=== PATIENT | female | born 1970 | race Caucasian/White ===

== ENCOUNTER 2018-06-19 03:00 | Emergency (ER) | payer OTHER ==
[2018-06-19] MEDS ORDERED: KETOROLAC 30 MG/ML INJ ONE (03:34)
[2018-06-19] MEDS ORDERED: ONDANSETRON 4 MG/2 ML VIAL ONE (03:34)
[2018-06-19] MEDS ORDERED: NA CHLORIDE 0.9% 1,000 ML ONE (03:35)
[2018-06-19] MEDS ORDERED: ACETAMINOPHEN 500 MG TAB ONE (04:59)
--- NOTE | 2018-06-19 05:03 | ER ---
Nurse's Notes [facility] Name: Karolyn Macias Age: 48 yrs Sex: Female : 1970 Arrival Date: 06/19/2018 Time: 03:06 Bed 8 Private MD: Ramón Wade Diagnosis: Migraine with aura, not intractable Presentation: 06/19 03:14 Presenting complaint: Patient states: I have a headache that started on Saturday and has jb4 just gotten worse. It feels like a migraine headache. Transition of care: patient was not received from another setting of care. Onset of symptoms was June 17, 2018. Risk Assessment: Do you want to hurt yourself or someone else? Patient reports no desire to harm self or others. Initial Sepsis Screen: Does the patient meet any 2 criteria? HR > 90 bpm. Yes Does the patient have a suspected source of infection? No. Patient's initial sepsis screen is negative. Care prior to arrival: None. 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 - Social history:: Smoking status: Patient/guardian denies using tobacco, Patient uses alcohol. - Ebola Screening: : No symptoms or risks identified at this time. Screenin:20 Abuse screen: Denies threats or abuse. Nutritional screening: No deficits noted. ea Tuberculosis screening: No symptoms or risk factors identified. Fall Risk None identified. Assessment: 03:18 General: Appears uncomfortable, Behavior is calm, appropriate for age. Pain: Complains ea of pain in forehead, right samaritan and left samaritan. Neuro: Level of Consciousness is awake, alert, obeys commands, Oriented to person, place, time. Cardiovascular: Patient's skin is warm and dry. Respiratory: Airway is patent Respiratory effort is even, unlabored, Respiratory pattern is regular, symmetrical. Derm: Skin is pink, warm \T\ dry. Musculoskeletal: Circulation, motion, and sensation intact. 04:22 Reassessment: Patient and/or family updated on plan of care and expected duration. Pain ea level reassessed. Patient is alert, oriented x 3, equal unlabored respirations, skin warm/dry/pink. Patient states symptoms have improved. 05:14 Reassessment: Patient and/or family updated on plan of care and expected duration. Pain ea level reassessed. Patient is alert, oriented x 3, equal unlabored respirations, skin warm/dry/pink. Discharge instructions given to patient, verbalized the understanding of instructions. Patient states feeling better. Patient states symptoms have improved. Vital Signs: 03:20 BP 157 / 89; Pulse 108; Resp 19; Temp 97.7; Pulse Ox 99% ; Weight 131.54 kg; Height 5 jb4 ft. 3 in. (160.02 cm); Pain 5/10; 04:26 BP 122 / 73; Pulse 72; Resp 18; Pulse Ox 99% ; Pain 3/10; ea 05:00 BP 101 / 61; Pulse 70; Resp 18; Pulse Ox 100% on R/A; ea 03:20 Body Mass Index 51.37 (131.54 kg, 160.02 cm) jb4 ED Course: 03:06 Patient arrived in ED. es 03:06 Ramón Wade MD is Private Physician. es 03:10 Vitor Ibrahim, RN is Primary Nurse. ao 03:15 Triage completed. jb4 03:15 Chip Antonio MD is Attending Physician. tw4 03:18 Patient has correct armband on for positive identification. Bed in low position. Call ea light in reach. Side rails up X2. 03:20 Arm band placed on right ankle. jb4 03:29 Inserted saline lock: 20 gauge in right forearm, using aseptic technique. rr5 05:02 Ramón Wade MD is Referral Physician. tw4 05:15 No provider procedures requiring assistance completed. IV discontinued, intact, ea bleeding controlled, No redness/swelling at site. Pressure dressing applied. Administered Medications: 03:31 Drug: TORadol 30 mg Route: IVP; Site: right antecubital; ea 04:00 Follow up: Response: No adverse reaction; Pain is decreased ea 03:31 Drug: Zofran 4 mg Route: IVP; Site: right antecubital; ea 04:00 Follow up: Response: No adverse reaction; Pain is decreased ea 03:31 Drug: NS 0.9% 1000 ml Route: IV; Rate: 1 bolus; Site: right antecubital; ea 04:25 Follow up: Response: No adverse reaction; IV Status: Completed infusion; IV Intake: ea 1000ml 04:54 Drug: Tylenol 1000 mg Route: PO; ea 05:10 Follow up: Response: Medication administered at discharge. ea Intake: 04:25 IV: 1000ml; Total: 1000ml. ea Outcome: 05:03 Discharge ordered by tw4 05:16 Discharged to home ambulatory. ea 05:16 Condition: improved 05:16 Discharge instructions given to patient, Instructed on discharge instructions, follow up and referral plans. medication usage, Demonstrated understanding of instructions, follow-up care, medications, Prescriptions given X 2. 05:17 Patient left the ED. ea Signatures: Trinity Penny Alex, RN RN Geronimo Ragland RN RN jb4 Eden Perez RN RN Chip Julien MD MD tw4 Byron Serrano RN RN rr5 Corrections: (The following items were deleted from the chart) 03:31 03:20 BP 178 / 9; Pulse 108bpm; Resp 19bpm; Pulse Ox 99%; Temp 97.7F; 131.54 kg; Height jb4 5 ft. 3 in.; BMI: 51.3; Pain 5/10; jb4
--- NOTE | 2018-06-19 05:03 | EDPHYS ---
Physician Documentation [facility] Name: Karolyn Macias Age: 48 yrs Sex: Female : 1970 Arrival Date: 06/19/2018 Time: 03:06 Bed 8 Private MD: Ramón Wade ED Physician PacoChip HPI: 06/19 04:29 This 48 yrs old Female presents to ER via Ambulatory with complaints of tw4 Headache. 04:29 The patient complains of pain to the left eye. The patient describes the headache as tw4 pounding, a pressure. Onset: The symptoms/episode began/occurred today. Associated signs and symptoms: The patient has no apparent associated signs or symptoms. Severity of symptoms: At its worst the pain was moderate, in the emergency department the pain is unchanged. Headache History: Denies prior headaches. The symptoms are alleviated by nothing. the symptoms are aggravated by nothing. 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 - Social history:: Smoking status: Patient/guardian denies using tobacco, Patient uses alcohol. - Ebola Screening: : No symptoms or risks identified at this time. ROS: 04:29 Constitutional: Negative for fever, chills, and weight loss, Eyes: Negative for injury, tw4 pain, redness, and discharge, Cardiovascular: Negative for chest pain, palpitations, and edema, Respiratory: Negative for shortness of breath, cough, wheezing, and pleuritic chest pain, Back: Negative for injury and pain, MS/Extremity: Negative for injury and deformity, Skin: Negative for injury, rash, and discoloration, Neuro: Negative for headache, weakness, numbness, tingling, and seizure. 04:29 Abdomen/GI: Positive for abdominal pain, Negative for nausea and vomiting, nausea, vomiting, and diarrhea, abdominal cramps, abdominal distension, anorexia, dysphagia, hematemesis, black/tarry stool, rectal pain. Exam: 04:29 Constitutional: This is a well developed, well nourished patient who is awake, alert, tw4 and in no acute distress. Head/Face: Normocephalic, atraumatic. Chest/axilla: Normal chest wall appearance and motion. Nontender with no deformity. No lesions are appreciated. Cardiovascular: Regular rate and rhythm with a normal S1 and S2. No gallops, murmurs, or rubs. Normal PMI, no JVD. No pulse deficits. Respiratory: Lungs have equal breath sounds bilaterally, clear to auscultation and percussion. No rales, rhonchi or wheezes noted. No increased work of breathing, no retractions or nasal flaring. Abdomen/GI: Soft, non-tender, with normal bowel sounds. No distension or tympany. No guarding or rebound. No evidence of tenderness throughout. Back: No spinal tenderness. No costovertebral tenderness. Full range of motion. MS/ Extremity: Pulses equal, no cyanosis. Neurovascular intact. Full, normal range of motion. Neuro: Awake and alert, GCS 15, oriented to person, place, time, and situation. Cranial nerves II-XII grossly intact. Motor strength 5/5 in all extremities. Sensory grossly intact. Cerebellar exam normal. Normal gait. Vital Signs: 03:20 BP 157 / 89; Pulse 108; Resp 19; Temp 97.7; Pulse Ox 99% ; Weight 131.54 kg; Height 5 jb4 ft. 3 in. (160.02 cm); Pain 5/10; 04:26 BP 122 / 73; Pulse 72; Resp 18; Pulse Ox 99% ; Pain 3/10; ea 05:00 BP 101 / 61; Pulse 70; Resp 18; Pulse Ox 100% on R/A; ea 03:20 Body Mass Index 51.37 (131.54 kg, 160.02 cm) jb4 MDM: 03:15 Patient medically screened. tw4 04:56 Data reviewed: vital signs, nurses notes. Counseling: I had a detailed discussion with 4 the patient and/or guardian regarding: the historical points, exam findings, and any diagnostic results supporting the discharge/admit diagnosis. Medication response: Toradol relieved patient's pain. The symptoms have resolved. Response to treatment: and as a result, I will discharge patient. Special discussion: Based on the patient's history, exam and DX evaluation, there is no indication for emergent intervention or inpatient TX. It is understood by the patient/guardian that if the SXs persist or worsen they need to return immediately for re-evaluation. Administered Medications: 03:31 Drug: TORadol 30 mg Route: IVP; Site: right antecubital; ea 04:00 Follow up: Response: No adverse reaction; Pain is decreased ea 03:31 Drug: Zofran 4 mg Route: IVP; Site: right antecubital; ea 04:00 Follow up: Response: No adverse reaction; Pain is decreased ea 03:31 Drug: NS 0.9% 1000 ml Route: IV; Rate: 1 bolus; Site: right antecubital; ea 04:25 Follow up: Response: No adverse reaction; IV Status: Completed infusion; IV Intake: ea 1000ml 04:54 Drug: Tylenol 1000 mg Route: PO; ea 05:10 Follow up: Response: Medication administered at discharge. ea Disposition: 06/19/18 05:03 Discharged to Home. Impression: Migraine with aura, not intractable. - Condition is Stable. - Discharge Instructions: Recurrent Migraine Headache, Migraine Headache, Theb-js-Gurr. - Prescriptions for Fiorinal 50- 325-40 mg Oral Capsule - take 1 capsule by ORAL route every 4 hours As needed - not to exceed 6 capsules per day; 20 capsule. Zofran 4 mg Oral Tablet - take 1 tablet by ORAL route every 12 hours As needed; 6 tablet. - Medication Reconciliation Form, Thank You Letter, Antibiotic Education, Prescription Opioid Use form. - Follow up: Ramón Wade MD; When: Upon discharge from the Emergency Department; Reason: Further diagnostic work-up, Recheck today's complaints, Continuance of care. - Problem is new. - Symptoms have improved. Signatures: Geronimo Grissom RN RN jb4 Eden Perez RN RN Chip Julien MD MD tw4 Corrections: (The following items were deleted from the chart) 05:17 05:03 06/19/2018 05:03 Discharged to Home. Impression: Migraine with aura, not ea intractable. Condition is Stable. Forms are Medication Reconciliation Form, Thank You Letter, Antibiotic Education, Prescription Opioid Use. Follow up: Ramón Wade; When: Upon discharge from the Emergency Department; Reason: Further diagnostic work-up, Recheck today's complaints, Continuance of care. Problem is new. Symptoms have improved. tw4
== END 2018-06-19 05:17 | disposition home or self-care (01) ==
LOC: ER 03:00
DX: G43.109 Migraine with aura, not intractable, without status migrainosus (principal); I10 Essential (primary) hypertension; E05.90 Thyrotoxicosis, unspecified without thyrotoxic crisis or storm
CPT/HCPCS: 96361; 96374; 96375; 99283; J2405; J7030

== ENCOUNTER 2021-12-04 01:32 | Emergency (ER) | payer OTHER ==
--- OUTSIDE RECORDS SUMMARY | 2021-12-04 01:35 | XMS REPORT | Continuity of Care Document ---
:1970 Author Organization Formerly [facility] t Address [address] [place] [address] Care Team Providers Name Role Phone Yehuda GARCIA Primary Care Physician Unavailable RADIOLOGY Attending Clinician Unavailable Radiology Attending Clinician Unavailable Doctor Unassigned, Name Attending Clinician Unavailable Yehuda GARCIA Admitting Clinician Unavailable WOODIN Admitting Clinician Unavailable Payers Payer Name Policy Type Policy Number Effective Date Expiration Date Derian [facility] [id number] 2018 00:00:00 2021 00:00 :00 Problems Condition Condition Condition Status Onset Resolution Last Treating Co mments Source Name Details Category Date Date Treatment Clinician Date Hypothyroi Hypothyroi Disease Active Overview : NPI:183 dism dism 01-25 ICD10 3428192 00:00: Diagnosis 00 Term [employer] Obesity Obesity Disease Active Overview: NPI: 183 01-25 ICD10 0587402 00:00: Diagnosis 00 Term [employer] Vitiligo Vitiligo Disease Active NPI:1 83 01-25 [id number] 00:00: 00 Impaired Impaired Disease Active NPI:1 83 glucose glucose 8-19 [id number] tolerance tolerance 00:00: test test 00 Allergies, Adverse Reactions, Alerts Allergy Allergy Status Severity Reaction(s) Onset Inactive Treating Comm ents Source Name Type Date Date Clinician NO KNOWN Drug Active NPI:183 ALLERGIE Class [id number] S Social History Social Habit Start Date Stop Date Quantity Comments Source Sex Assigned At NPI :[id number] Smoking Status Start Date Stop Date Source Unknown if ever smoked NPI:[id number] Medications Ordered Filled Start Stop Current Ordering Indication Dosage Frequency Signature Comments Components Source Medication Medication Date Date Medication? Clinician (SIG) Name Name propranolol 2020-0 Yes 120mg Take 120 N PI:183 (INNOPRAN 3-18 mg by [id number] XL) 120 mg 20:11: mouth at 24 hr 03 bedtime. capsule Drospirenon 2020-0 Yes 1{tbl} Take 1 Tab NPI:183 e-Ethinyl 3-18 by mouth [id number] 1 Estradiol 20:11: daily. (OCELLA) 03 3-0.03 mg tablet propranolol 2020-0 Yes 120mg Take 120 N PI:183 (INNOPRAN 3-18 mg by [id number] XL) 120 mg 20:11: mouth at 24 hr 03 bedtime. capsule Drospirenon 2020-0 Yes 1{tbl} Take 1 Tab NPI:183 e-Ethinyl 3-18 by mouth [id number] 1 Estradiol 20:11: daily. (OCELLA) 03 3-0.03 mg tablet codeine-gua Yes 10mL Take 10 mL NPI:183 ifenesin 5-27 by mouth [id number] (ROBITUSSIN 00:00: every 4 AC) 10-100 00 (four) mg/5 mL hours as solution needed for Cough. codeine-gua Yes 10mL Take 10 mL NPI:183 ifenesin 5-27 by mouth [id number] (ROBITUSSIN 00:00: every 4 AC) 10-100 00 (four) mg/5 mL hours as solution needed for Cough. Cholecalcif 2010-07 Yes 1{capsu Take 1 Cap NPI:183 silvino, 2-06 le} by mouth [id number] Vitamin D3, 00:00: weekly. 50,000 unit 00 Cap Cholecalcif 2010-07 Yes 1{capsu Take 1 Cap NPI:183 silvino, 2-06 le} by mouth [id number] Vitamin D3, 00:00: weekly. 50,000 unit 00 Cap Levothyroxi 2010-07 Yes .125mg Take 1 Cap NPI:183 ne 1-29 by mouth [id number] (TIROSINT) 00:00: daily. 125 mcg Cap 00 Levothyroxi 2010-07 Yes .125mg Take 1 Cap NPI:183 ne 1-29 by mouth [id number] (TIROSINT) 00:00: daily. 125 mcg Cap 00 Procedures Procedure Date / Time Performed Performing Clinician Sourc e XR CERVICAL SPINE 3 VW 2020-01-19 16:57:04 Kadeem Garcia NPI:1 [id number] ASSIGNMENT OF BENEFITS 2020-01-19 16:15:36 Doctor Unassigned, No Name XR WRIST 3+ VW BILATERAL 2019-09-30 17:28:20 Glenys Esqueda NPI :[id number] Encounters Start End Encounter Admission Attending Care Care Encounter Source Date/Time Date/Time Type Type Clinicians Facility Department ID 2020-01-19 2020-01-19 Outpatient R RADIOLOGY [facility] [id number] NPI:183 11:20:18 23:59:00 [id number] 2020-01-19 2020-01-19 [facility] Radiology [facility] [id number] NPI:183 11:15:00 23:59:00 [place]counter [place] [id number] [place] [id number] [place] [id number] 2020-01-19 2020-01-19 Outpatient R RADIOLOGY [facility] [id number] NPI:183 11:15:00 11:15:00 [id number] 2020-01-19 2020-01-19 Orders Doctor DAISY [id number] NPI:183 00:00:00 00:00:00 Only Unassigned, [place] [id number] [facility] [id number] 2019-09-30 2019-09-30 Outpatient R RADIOLOGY [facility] RAD [id number] NPI:183 10:59:24 23:59:00 [id number] 2019-09-30 2019-09-30 [facility] Radiology [facility] [id number] NPI:183 10:59:00 23:59:00 Encounter [place] [id number] [place] [id number] [place] [id number] Results Test Description Test Time Test Comments Results Result Sourc e Comments SCR MAMM 2020-12-29 BILATERAL BLADE 0 CAD DIGITAL 14:29:18 Name: Genesis : 1970 Sex: F - SCR MAMM BILATERAL BLADE CAD DIGITALBILATERAL DIGITAL SCREENING MAMMOGRAM 3D/2D WITH CAD: 01/17/2021LINICAL: Asymptomatic. Digital breast tomosynthesis was performed in addition to routine CC and MLO views. Current mammographic images were evaluated by [employer] Image[employer] CAD (computer-aided detection) software. Comparison is made to exams dated 01/07/2019 mammogram, 12/27/2017 mammogram, and 12/13/2015 mammogram - [facility]. The tissue of both breasts is predominantly fatty. No suspicious mass, architectural distortion, malignant type calcification, or lymph node abnormality detected. Breast architecture is stable compared to prior exams.IMPRESSION: NEGATIVEThere is no mammographic evidence of malignancy. Resume annual screening mammography in one year. Ora blakely/julio césar:01/25/2021 14:29:18 Policy Writer: Colleen Jacobsen MM, [facility] sent: BIRADS 1-2 Normal Mammogram BI-RADS: 1 Negative XR CERVICAL 2019-12-29 HISTORY: ?Neck pain. NPI :[id number] SPINE 3 VW 3 FINDINGS: AP, lateral 781 17:01:11 and open-mouth odontoid views of the cervical spineare obtained which showed no acute fracture or dislocation. Reversal of thenormal lordotic curvature at midcervical level is suggestive of neck musclespasm.Moderate degenerative disc disease noted at C6-C7 with narrowing of thedisc space by 60%, prominent osteophytes along the ventral vertebralmargins and small osteophytes minimally encroaching dorsally into thespinal canal. C5-C6 disc space is narrowed by approximately 25 % with very smallosteophytes along the ventral vertebral margins. C4-C5 disc space is minimally narrowed without degenerative changes in thevertebral margins.Facet arthritis noted on the left side at C4-C5, C5-C6 and C6-C7.Uncovertebral osteophytes encroaching into left neural foramen at C5-C6 andminimally into right neural foramen at C6-C7. Prominent transverse processes of C7 noted. CONCLUSIONS: 1. No acute fracture or dislocation. Probable neck muscle spasm.2. C6-C7, less at C5-C6 and left-sided multilevel facet arthritis. [facility], Radiant Results Inft User - 01/19/2020 12:02 PM CDTHISTORY: Neck pain.FINDINGS: AP, lateral and open-mouth odontoid views of the cervical spineare obtained which showed no acute fracture or dislocation. Reversal of thenormal lordotic curvature at midcervical level is suggestive of neck musclespasm.Moderate degenerative disc disease noted at C6-C7 with narrowing of thedisc space by 60%, prominent osteophytes along the ventral vertebralmargins and small osteophytes minimally encroaching dorsally into thespinal canal.C5-C6 disc space is narrowed by approximately 25 % with very smallosteophytes along the ventral vertebral margins.C4-C5 disc space is minimally narrowed without degenerative changes in thevertebral margins.Facet arthritis noted on the left side at C4-C5, C5-C6 and C6-C7.Uncovertebral osteophytes encroaching into left neural foramen at C5-C6 andminimally into right neural foramen at C6-C7.Prominent transverse processes of C7 noted.CONCLUSIONS: 1. No acute fracture or dislocation. Probable neck muscle spasm.2. C6-C7, less at C5-C6 and left-sided multilevel facet arthritis. XR WRIST 3+ VW HISTORY: ?Pain. NPI:1 [id number] BILATERAL 4 FINDINGS: AP, lateral, 78 1 17:58:44 oblique views of left wrist showed no acute fractureor dislocation. Minimal joint space narrowing between scaphoid and radiusnoted with prominent radial styloid. Mild negative ulnar variance noted. CONCLUSIONS: No acute fracture or dislocation in left wrist. Possible verymild radiostyloid impingement. [facility], Radiant Results Inft User - 09/30/2019 11:59 AM CSTHISTORY: Pain.FINDINGS: AP, lateral, oblique views of left wrist showed no acute fractureor dislocation. Minimal joint space narrowing between scaphoid and radiusnoted with prominent radial styloid. Mild negative ulnar variance noted.CONCLUSIONS: No acute fracture or dislocation in left wrist. Possible verymild radiostyloid impingement. SCR MAMM 2018-12-27 - SCR MAMM BILATERAL BILATERAL BLADE 4 BLADE CAD CAD DIGITAL 14:20:01 DIGITALBILATERAL DIGITAL SCREENING MAMMOGRAM 3D/2D WITH CAD: 01/07/2019CLINICAL: Asymptomatic. Digital breast tomosynthesis was performed in addition to routine CC and MLO views. Current mammographic images were evaluated by either a [employer] M-Vu or a [employer] Image[employer]er CAD (computer aided detection system). Comparison is made to exams dated 12/27/2017 mammogram and 12/13/2015 mammogram - [facility]. The tissue of both breasts is predominantly fatty. No suspicious mass, architectural distortion, malignant type calcification, or lymph node abnormality detected. Breast architecture is stable compared to prior exams.IMPRESSION: NEGATIVEThere is no mammographic evidence of malignancy. Resume annual screening mammography in one year. Ora Tejeda M.D. dm/penrad:01/09/2019 14:20:01 Attending Technologist: Jayshree López MM, [facility] Technologist: Shaunna Mcneil MM, [facility] sent: BIRADS 1-2 Normal Mammogram BI-RADS: 1 Negative SCR MAMM 2018-12-27 - SCR MAMM BILATERAL BILATERAL BLDAE 4 BLADE CAD CAD DIGITAL 14:20:01 DIGITALBILATERAL DIGITAL SCREENING MAMMOGRAM 3D/2D WITH CAD: 01/07/2019CLINICAL: Asymptomatic. Digital breast tomosynthesis was performed in addition to routine CC and MLO views. Current mammographic images were evaluated by either a [employer] M-Vu or a [employer] ImageChecker CAD (computer aided detection system). Comparison is made to exams dated 12/27/2017 mammogram and 12/13/2015 mammogram - [facility]. The tissue of both breasts is predominantly fatty. No suspicious mass, architectural distortion, malignant type calcification, or lymph node abnormality detected. Breast architecture is stable compared to prior exams.
--- NOTE | 2021-12-04 04:08 | ER ---
Nurse's Notes [facility] Name: Karolyn Macias Age: 51 yrs Sex: Female : 1970 Arrival Date: 12/04/2021 Time: 01:35 Bed 10 Private MD: Diagnosis: Presentation: 12/04 02:21 Chief complaint: Patient states: she has had a migraine since Saturday which is not going bb away reports nausea as well. Coronavirus screen: At this time, the client does not indicate any symptoms associated with coronavirus-19. Ebola Screen: No symptoms or risks identified at this time. Initial Sepsis Screen: Does the patient meet any 2 criteria? No. Patient's initial sepsis screen is negative. Does the patient have a suspected source of infection? No. Patient's initial sepsis screen is negative. Risk Assessment: Do you want to hurt yourself or someone else? Patient reports no desire to harm self or others. Onset of symptoms was December 01, 2021. 02:21 Method Of Arrival: Ambulatory bb 02:21 Acuity: DARIAN 4 bb Triage Assessment: 02:22 Headache History: The patient has had previous headaches and this one is similar to bb previous episodes. General: Appears uncomfortable, Behavior is calm, cooperative. Pain: Complains of pain in head Pain currently is 8 out of 10 on a pain scale. Pain began 2-3 days ago. Also complains of nausea. Neuro: Level of Consciousness is awake, alert, obeys commands, Oriented to person, place, time, situation. Cardiovascular: Capillary refill < 3 seconds Patient's skin is warm and dry. Respiratory: Respiratory effort is even, unlabored, Respiratory pattern is regular. GI: Reports nausea. Derm: Skin is pink, warm \T\ dry. Musculoskeletal: Circulation, motion, and sensation intact. 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 - Social history:: Smoking status: Patient denies any tobacco usage or history of. Screenin:28 Abuse screen: Denies threats or abuse. Nutritional screening: No deficits noted. bb Tuberculosis screening: No symptoms or risk factors identified. Fall Risk None identified. Assessment: :28 Reassessment: No changes from previously documented assessment. Patient is alert, bb oriented x 3, equal unlabored respirations, skin warm/dry/pink. see triage assessment. 04:07 Reassessment: Pt states she does not want to wait any longer since she has not been bb seen by the ED provider yet pt left the ED. Vital Signs: 02:21 BP 137 / 78; Pulse 81; Resp 16 S; Temp 98(O); Pulse Ox 100% on R/A; Weight 136.08 kg bb (R); Height 5 ft. 3 in. (160.02 cm) (R); Pain 8/10; 02:21 Body Mass Index 53.14 (136.08 kg, 160.02 cm) bb ED Course: 01:35 Patient arrived in ED. kz 02:22 Triage completed. bb 02:22 Arm band placed on. bb 02:28 Yuli Meyer RN is Primary Nurse. bb 02:28 Patient has correct armband on for positive identification. Call light in reach. Door bb closed. Noise minimized. Lights dimmed. 03:04 Ronal Agosto MD is Attending Physician. [facility] Administered Medications: No medications were administered Outcome: 04:08 Patient left the ED. bb Signatures: Yuli Meyer RN RN bb Ronal Agosto MD MD 7 Chyna Gaston k
[2021-12-04 04:16] VITALS: BP 137/78; TEMP 98; O2SAT 100
== END 2021-12-04 04:08 | disposition left against medical advice (07) ==
LOC: ER 01:32
DX: Z53.21 Procedure and treatment not carried out due to patient leaving prior to being seen by health care provider (principal)
CPT/HCPCS: 99281